=== PATIENT | female | born 1990 | race African-American/Black ===

== ENCOUNTER 2020-10-15 18:28 | Inpatient (IN) ==
[2020-10-15] MEDS ORDERED: ONDANSETRON 4 MG/2 ML VIAL IV PRN ×2 (19:00→23:55)
[2020-10-15] MEDS ORDERED: BUTORPHANOL 2 MG/ML VIAL ONE (19:39)
[2020-10-15] MEDS ORDERED: BUTORPHANOL 2 MG/ML VIAL IV PRN (19:44)
[2020-10-15] MEDS: LACTATED RINGERS 1,000 ML IV SCH ×2 (19:49→19:59)
[2020-10-15] MEDS ORDERED: BUTORPHANOL 1 MG/ML VIAL IV SCH (20:00)
[2020-10-15 20:38] LABS: Basophils % 0.2 % (0.0-0.8); Eosinophils # 0.1 10*3/uL (0.0-0.87); Eosinophils % 0.8 % (0.00-10.9); Hematocrit 34.3 VOL% (35.7-47.0); Hemoglobin 11.7 GM/DL (12.0-16.0); Immature Granulocytes % 0.4 %; Immature Granulocytes Absolute 0.05 #; Lymphocytes # 1.2 10*3/uL (1.4-4.0); Lymphocytes % 10.3 % (21.3-54.2); Mean Corpuscular HGB Conc 34.1 GM/DL (32-36); Mean Corpuscular Volume 87.5 FL (87-102); Mean Platelet Volume 11.1 FL (9.6-12.0); Neutrophils % 81.3 % (38.7-73.9); Platelet Count 286 T/CUMM (130-400); Red Blood Count 3.92 MC/CUMM (3.8-5.5); Red Cell Distribution Width 13.5 % (9.3-17.3); White Blood Count 11.9 T/CUMM (4-12)
[2020-10-15] MEDS ORDERED: FAMOTIDINE 20 MG/2 ML VIAL IV ONE (20:45)
[2020-10-15] MEDS ORDERED: LACTATED RINGERS 1,000 ML IV ONE (20:45)
[2020-10-15] MEDS ORDERED: CITRIC ACID/SODIUM CITRATE 30 ML UDCUP PO ONE (20:45)
[2020-10-15] MEDS ORDERED: hydrOXYzine HCL 25 MG/1 ML VIAL IM PRN (20:46)
[2020-10-15] MEDS ORDERED: diphenhydrAMINE 50 MG/1 ML VIAL IV PRN ×2 (20:46)
[2020-10-15] MEDS ORDERED: NALOXONE 0.4 MG/ML VIAL IV PRN (20:46)
[2020-10-15] MEDS ORDERED: ONDANSETRON 4 MG/2 ML VIAL IV ONE (20:46)
[2020-10-15] MEDS ORDERED: PROMETHAZINE 25 MG/1 ML VIAL IM ONE (20:46)
[2020-10-15] MEDS ORDERED: fentaNYL 2 MCG/ROPIV 0.2% EPID 100 ML EPIDURAL ONE (20:51)
[2020-10-15] MEDS ORDERED: fentaNYL 2 MCG/ROPIV 0.2% EPID 100 ML EPIDURAL SCH (21:00)
[2020-10-15] MEDS: ePHEDrine 50 MG/ML VIAL IV PRN ×3 (22:14→22:31)
[2020-10-15] MEDS ORDERED: OXYTOCIN/LR 20 UNIT/1,000 ML BAG IV ONE ×2 (23:12→23:55)
[2020-10-15] MEDS ORDERED: LIDOCAINE 1% 50 ML VIAL ONE (23:12)
[2020-10-15 23:54] LABS: Cord Venous Blood HCO3 17.4 MMOL/L; Cord Venous Blood PCO2 51.7 MMHG; Cord Venous Blood PO2 30.3
[2020-10-15] MEDS ORDERED: IBUPROFEN 800 MG TABLET PO PRN (23:55)
[2020-10-15] MEDS ORDERED: ACETAMINOPHEN 325 MG TABLET PO PRN (23:55)
[2020-10-15] MEDS ORDERED: MEASLES/MUMPS/RUBELLA VACCINE 0.5 ML VIAL SUBCUT ONE (23:55)
[2020-10-15] MEDS ORDERED: WITCH HAZEL PADS 100/JAR TOP PRN (23:55)
[2020-10-15] MEDS ORDERED: RHO(D) IMMUNE GLOBULIN 300 MCG SYRINGE IM ONE (23:55)
[2020-10-15] MEDS ORDERED: DIPH/TET/ACEL PERT BOOSTER VACCINE 0.5 ML VIAL IM ONE (23:55)
[2020-10-15] MEDS ORDERED: HYDROCORTISONE 2.5% RECTAL CREAM 30 GM TUBE TOP PRN (23:55)
[2020-10-15] MEDS ORDERED: oxyCODONE/ACETAMINOPHEN 5-325 MG TABLET PO PRN (23:55)
[2020-10-15] MEDS ORDERED: LANOLIN 50% CREAM 0.3 OZ TUBE TOP PRN (23:55)
[2020-10-15] MEDS ORDERED: BISACODYL 10 MG SUPP RECTAL PRN (23:55)
[2020-10-16] MEDS: BENZOCAINE 20%/MENTHOL 0.5% SPRAY 56 GM CAN TOP PRN (05:57)
[2020-10-16 06:14] LABS: Basophils % 0.1 % (0.0-0.8); Eosinophils % 0.1 % (0.00-10.9); Hematocrit 29.3 VOL% (35.7-47.0); Hemoglobin 9.9 GM/DL (12.0-16.0); Immature Granulocytes % 0.6 %; Immature Granulocytes Absolute 0.11 #; Lymphocytes # 1.5 10*3/uL (1.4-4.0); Lymphocytes % 8.4 % (21.3-54.2); Mean Corpuscular HGB Conc 33.8 GM/DL (32-36); Mean Corpuscular Volume 88.5 FL (87-102); Mean Platelet Volume 10.7 FL (9.6-12.0); Monocytes % 6.9 % (1.7-12.7); Neutrophils % 83.9 % (38.7-73.9); Platelet Count 254 T/CUMM (130-400); Red Blood Count 3.31 MC/CUMM (3.8-5.5); Red Cell Distribution Width 13.2 % (9.3-17.3); White Blood Count 18.1 T/CUMM (4-12)
[2020-10-16] MEDS: DOCUSATE SODIUM 100 MG CAPSULE PO SCH ×2 (09:30→20:25)
[2020-10-17] MEDS: DOCUSATE SODIUM 100 MG CAPSULE PO SCH (07:59)
[2020-10-17] MEDS: oxyCODONE/ACETAMINOPHEN 5-325 MG TABLET PO PRN ×2 (07:59→14:02)
[2020-10-17] MEDS: BENZOCAINE 20%/MENTHOL 0.5% SPRAY 56 GM CAN TOP PRN (07:59)
[2020-10-17 09:36] VITALS: BP 100/64
== END 2020-10-17 15:00 | disposition home or self-care (01) | DRG 560 ==
LOC: N.LD 18:28 → N.LDOUT 18:28 → N.LD 18:30 → N.OB 10-16 02:20
PROVIDERS: ADMIT Specialist; ATTEND Specialist